=== PATIENT | male | born 1980 | race Asian ===

== ENCOUNTER 2017-09-10 00:28 | Emergency (ER) | payer SELFPAY ==
[~2017-09-10] VITALS: Ht 165.1 cm; Wt 72.6 kg
--- NOTE | 2017-09-10 16:31 | EKG ---
[facility] [address] [facility] [place], [place] [address] Signed Normal sinus rhythm Normal ECG When compared with ECG of 15-JAN-2017 14:17, No significant change was found Confirmed by BOY VEE MD ([id number] on 09/10/2017 4:31:00 PM Electronically Signed By: BOY VEE MD 09/10/17 1631 PATIENT NAME: BERNADETTE GARNER Electrocardiogram DATE OF : 84 PHYSICIAN: BOY VEE MD REPORT #: [id number] REPORT IS CONFIDENTIAL AND NOT TO BE RELEASED WITHOUT AUTHORIZATION
== END 2017-09-10 02:14 | disposition home or self-care (01) ==
LOC: ED 00:28
DX: R00.2 Palpitations (principal); F17.200 Nicotine dependence, unspecified, uncomplicated
CPT/HCPCS: 80053; 83735; 84484; 85025; 93005; 93010; 99284